=== PATIENT | female | born 1995 ===

== ENCOUNTER 2018-09-02 09:30 | Inpatient (IN) | payer OTHER ==
[2018-09-02] MEDS ORDERED: ELECTROLYTE-148 SOLN 500 ML IV SCH ×2 (10:30→11:30)
[2018-09-02 12:12] VITALS: BMI 28.3
[2018-09-02 12:51] LABS: BASO % 0.5 % (0-2.0); EOS % 0.2 % (0-4.5); HEMATOCRIT 35.9 % (32.4-45.2); HEMOGLOBIN 12.2 GM/dL (10.7-15.3); LYMPH % 23.7 % (8-40); MCH 27.1 pg (25.7-33.7); MCHC 34.1 g/dl (32.0-36.0); MEAN CELL VOLUME 79.5 fl (80-96); MEAN PLT VOLUME 8.9 fl (7.5-11.1); NEUT % 71.6 % (42.8-82.8); PLATELET COUNT 206 K/MM3 (134-434); RBC 4.51 M/mm3 (3.60-5.2); RDW 14.2 % (11.6-15.6); WHITE BLOOD COUNT 11.4 K/mm3 (4.0-10.0)
--- NOTE | 2018-09-02 12:56 | HP ---
Past Medical History - Primary Care Physician PCP:: Lee Austin - Admission Chief Complaint: pregnanacy 38 weeks, previous c/s , labor , request of repeat c /s History of Present Illness: 22 yo f with one previous c/s, c/o contraction since 5 am today, no rom , cx 1 cm, 70 vx -4 mi, fhr cat 1, regular contractions q 2min , requesting repeat c/s, risks discussed History Source: Patient Limitations to Obtaining History: No Limitations - Past Medical History ...: 2 ...Para: 1 ...Term: 1 ...: 0 ...Spon : 0 ...Induced : 0 ...Multiple Gestation: 0 ...LMP: 12/18/17 ... Weeks Gestation by Dates: 36.6 ...EDC by Dates: 09/24/18 ...EDC by Sono: 09/15/18 - Past Surgical History Past Surgical History: Yes: Hx Transabdominal Cerclage: No - Smoking History Smoking history: Never smoked Have you smoked in the past 12 months: No - Alcohol/Substance Use Hx Alcohol Use: No - Social History Usual Living Arrangement: Yes: With Spouse History of Recent Travel: No Home Medications - Allergies Allergies/Adverse Reactions: Allergies Allergy/AdvReac Type Severity Reaction Status Date / Time No Known Allergies Allergy Verified 09/02/18 10:02 - Home Medications Home Medications: Ambulatory Orders Pnv No.95/Ferrous Fum/Folic AC [ Formula] 1 each PO DAILY 09/02/18 Review of Systems - Review of Systems Constitutional: reports: No Symptoms Eyes: reports: No Symptoms HENT: reports: No Symptoms Neck: reports: No Symptoms Cardiovascular: reports: No Symptoms Respiratory: reports: No Symptoms Gastrointestinal: reports: No Symptoms Genitourinary: reports: No Symptoms Breasts: reports: No Symptoms Reported Musculoskeletal: reports: No Symptoms Neurological: reports: No Symptoms Endocrine: reports: No Symptoms Hematology/Lymphatic: reports: No Symptoms Psychiatric: reports: No Symptoms Physical Exam - Maternity Vital Signs: Vital Signs Temperature 98.6 F 09/02/18 12:00 Pulse Rate 74 09/02/18 12:00 Respiratory Rate 18 09/02/18 12:00 Blood Pressure 111/67 09/02/18 12:00 O2 Sat by Pulse Oximetry (%) Constitutional: Yes: Well Nourished, No Distress, Calm Eyes: Yes: WNL, Conjunctiva Clear, EOM Intact HENT: Yes: WNL, Atraumatic, Normocephalic Neck: Yes: WNL, Supple, Trachea Midline Cardiovascular: Yes: WNL, Regular Rate and Rhythm Breast(s): Yes: WNL - Abdominal Exam/OB Fundal Height: 38 Number of Fetuses: Single Presentation: Vertex Contractions: Yes Regularity: Regular Intensity: Mod/Strong Monitor Mode: External Heart Rate Location: [facility] Category: I Accelerations: Uniform Decelerations: None - Vaginal Exam/OB Vaginal Bleediing: No Speculum Exam: No Dilatation (cm): 1 cm Effacement (%): 70 Amniotic Membrane Status: Intact Presentation: Vertex/Position Station: -3 - Physical Exam Musculoskeletal: Yes: WNL Extremities: Yes: WNL Edema: Yes Edema: LLE: Trace, RLE: Trace Deep Tendon Reflex Grade: Normal +2 Psychiatric: Yes: WNL - Labs Lab Results: CBC, BMP 09/02/18 12:35 Hemorrhage Risk Assessment - Risk Factors Medium Risk Factors: Yes: Prior , uterine surgery,or multiple laparotomies Risk Score: 1 Risk Level: Medium Risk Problem List - Problems (1) with 38 completed weeks gestation Code(s): Z3A.38 - 38 WEEKS GESTATION OF (2) Previous section Code(s): Z98.891 - HISTORY OF UTERINE SCAR FROM PREVIOUS SURGERY (3) Labor established Code(s): WMS2388 - Assessment/Plan requesting repeat c/s, risks discussed , encourged
[2018-09-02] MEDS ORDERED: CITRIC ACID/SODIUM CITRATE 30 ML UNIT-DOSE CUP PO ONE (12:58)
[2018-09-02 13:03] LABS: INR 0.83 (0.83-1.09); PROTHROMBIN TIME (PATIENT) 9.8 SEC (9.7-13.0)
[2018-09-02 13:05] LABS: ACTIVATED PTT 26.2 SECONDS (25.2-36.5)
[2018-09-02 13:19] LABS: ANION GAP 8 MMOL/L (8-16); BLOOD UREA NITROGEN 10 mg/dL (7-18); CALCIUM 7.7 mg/dL (8.5-10.1); CHLORIDE 110 mmol/L (98-107); CO2 22 mmol/L (21-32); CREATININE 0.4 mg/dL (0.55-1.3); GLUCOSE,RANDOM 100 mg/dL (74-106); SODIUM 140 mmol/L (136-145)
[2018-09-02] MEDS ORDERED: METOCLOPRAMIDE HCL INJECTION 10 MG/2 ML VIAL ONE (13:55)
[2018-09-02] MEDS ORDERED: METOCLOPRAMIDE HCL INJECTION 10 MG/2 ML VIAL IVPUSH ONE (13:57)
[2018-09-02] MEDS ORDERED: morphine SULFATE/Preservative Free 0.5 MG/ML (1cc Syringe) ONE (14:29)
[2018-09-02] MEDS ORDERED: BENZOCAINE 20% 57 GM BOTTLE TP PRN (14:40)
[2018-09-02] MEDS ORDERED: oxyCODONE HCL 5 MG TABLET PO PRN (14:40)
[2018-09-02] MEDS ORDERED: WITCH HAZEL 50% (TUCKS) 40 PAD/JAR PAD TP PRN (14:40)
[2018-09-02] MEDS ORDERED: METHYLERGONOVINE MALEATE 0.2 MG/1 ML AMP IM PRN (14:40)
[2018-09-02] MEDS ORDERED: BENZOCAINE 28 GM HEMORRHOIDAL OINTMENT PR PRN (14:40)
[2018-09-02] MEDS ORDERED: diphenhydrAMINE HCL 25 MG CAPSULE (FP) PO PRN (14:40)
[2018-09-02] MEDS ORDERED: OXYTOCIN 20 UNITS in 0.9% NS 20 UNIT/1,000 ML INFUS.BAG IV SCH (14:45)
[2018-09-02] MEDS ORDERED: ceFAZolin SODIUM 1 GM VIAL ONE (14:46)
[2018-09-02] MEDS ORDERED: OXYTOCIN 10 UNITS/ML VIAL ONE (14:52)
[2018-09-02 15:38] LABS: ARTERIAL BLD GAS O2 SATURATION 21.2 % (90-98.9); ARTERIAL BLOOD GAS BASE EXCESS 0.2 meq/l (-2-2); ARTERIAL BLOOD GAS PCO2 58.2 mmHg (35-45); ARTERIAL BLOOD GAS PO2 16.1 mmHg (80-100); ARTERIAL BLOOD GAS pH 7.3 (7.35-7.45)
[2018-09-02 15:40] LABS: VENOUS PC02 47.5 mmHg (38-52); VENOUS PH 7.36 (7.32-7.42); VENOUS PO2 26.3 mmHg (28-48)
[2018-09-02] MEDS ORDERED: ONDANSETRON 4 MG/2 ML VIAL IVPUSH PRN (16:02)
[2018-09-02] MEDS: IBUPROFEN 800 MG/8 ML IJ IVPB PRN ×2 (16:36→22:33)
[2018-09-02] MEDS ORDERED: IBUPROFEN 800 MG/8 ML IJ IVPB ONE (16:37)
[2018-09-02] MEDS ORDERED: OXYTOCIN 20 UNITS in 0.9% NS 20 UNIT/1,000 ML INFUS.BAG IV ONE (16:38)
--- NOTE | 2018-09-02 17:43 | OP ---
DATE OF OPERATION: 09/02/2018 PREOPERATIVE DIAGNOSIS: at 38 weeks, previous section in labor, requests a repeat section. POSTOPERATIVE DIAGNOSIS: at 38 weeks, previous section in labor, requests a repeat section. PROCEDURE: Repeat low segment transverse section. SURGEON: Lee Austin MD DRIVERS LICENSE EXAMINER: ANESTHESIA: Spinal. ANESTHESIOLOGIST: Dr. Anderson . ESTIMATED BLOOD LOSS: 500 mL. FINDINGS: Live baby, Apgars 9 and 9. OPERATION: The patient was taken to the operating room. Under adequate spinal anesthesia abdomen and perineum were prepped and draped, Pfannenstiel abdominal skin incision was made over previous incision. Abdominal wall was cut layer by layer until peritoneum was exposed and incised. Upon entering the abdominal cavity, there were bladder adhesions to the lower uterine segment. There were multiple omental adhesions to the peritoneum and periuterine segment. These adhesions were lysed with Metzenbaum scissors and hemostasis was established. Then bladder was pushed down. A low transverse uterine incision was made. Incision extended laterally with bandage scissors. Amniotic sac was entered, meconium amniotic fluid. Head delivered. Nasopharynx was suctioned. A live baby was delivered without any difficulty. Placenta was delivered manually. Uterine cavity was cleaned of all remaining tissue. Uterine incision was closed in 2 layers, 1st layer with 0-Biosyn continuous suture, the 2nd layer with 0-Biosyn imbricating the 1st layer. There was a slight amount of oozing from the left uterine angle which was sutured with interrupted suture of 0-Biosyn and hemostasis was established. Pelvic cavity was then irrigated; no active bleeding was seen. All the lap pad, sponge and instrument counts were correct. The peritoneum was closed with 0-Biosyn continuous suture. Muscles were brought together with interrupted suture of 0-Biosyn. Fascia was closed with 0-Biosyn continuous suture, subcutaneous fat with interrupted suture of 0-Biosyn and the skin was closed with wendy. The patient tolerated the procedure well, left the OR in good condition. Gopi [id number]
[2018-09-02] MEDS ORDERED: CEFAZOLIN 1 GM in DEXTROSE 5%-WATER - 50 ML IVPB SCH (18:00)
[2018-09-02] MEDS ORDERED: CEFAZOLIN 1 GM/D5W 1 GM/50 ML BAG IVPB SCH (18:00)
[2018-09-02] MEDS: CEFAZOLIN 1 GM/D5W 1 GM/50 ML BAG IVPB SCH (18:08)
[2018-09-03] MEDS: DEXTROSE 5%-LACTATED RINGERS 1,000 ML IV SCH ×2 (01:34→01:35)
[2018-09-03] MEDS: CEFAZOLIN 1 GM/D5W 1 GM/50 ML BAG IVPB SCH (01:34)
[2018-09-03 07:32] LABS: BASO % 0.2 % (0-2.0); EOS % 0.5 % (0-4.5); HEMATOCRIT 33.3 % (32.4-45.2); HEMOGLOBIN 10.8 GM/dL (10.7-15.3); LYMPH % 21.8 % (8-40); MCHC 32.4 g/dl (32.0-36.0); MEAN CELL VOLUME 80.2 fl (80-96); MEAN PLT VOLUME 8.8 fl (7.5-11.1); MONO % 4.6 % (3.8-10.2); NEUT % 72.9 % (42.8-82.8); PLATELET COUNT 161 K/MM3 (134-434); RBC 4.15 M/mm3 (3.60-5.2); RDW 14.5 % (11.6-15.6); WHITE BLOOD COUNT 10.6 K/mm3 (4.0-10.0)
--- NOTE | 2018-09-03 08:07 | PN ---
Progress Note (short form) - Note Progress Note: pod 1 , s/p repeat c/s doing well, no c/o CBC, BMP 09/03/18 06:15 09/02/18 11:48 Last Vital Signs Temp Pulse Resp BP Pulse Ox 98.7 F 76 18 110/67 100 09/03/18 06:00 09/03/18 06:00 09/03/18 06:00 09/03/18 06:00 09/02/18 17:15 abdomen soft, no distension, no cva uterus firm incision dry, clean lochia mild no calf tenderness impression pod 1 afebrile , VS stable plan ambulate, advance diet pain management Problem List - Problems (1) with 38 completed weeks gestation Code(s): Z3A.38 - 38 WEEKS GESTATION OF (2) Previous section Code(s): Z98.891 - HISTORY OF UTERINE SCAR FROM PREVIOUS SURGERY (3) Labor established Code(s): [id number] -
--- NOTE | 2018-09-03 08:12 | PN ---
Progress Note (short form) - Note Progress Note: Anesthesia PO#1 S/P under spinal A and Duramorph VSS,no N/V,no pain,legs are strong. No complications to anesthesia seen. Virgen Painter MD.
[2018-09-03] MEDS: IBUPROFEN 600 MG TABLET (FP) PO PRN ×2 (10:05→17:19)
[2018-09-03] MEDS: SIMETHICONE 80 MG TAB.CHEW (FP) PO PRN ×2 (10:05→17:20)
[2018-09-03] MEDS: oxyCODONE HCL 5 MG TABLET PO PRN ×2 (10:06→17:19)
[2018-09-03] MEDS: ENOXAPARIN NA (PORCINE) 40 MG/0.4 ML DISP.SYRIN SQ SCH (10:08)
[2018-09-03] MEDS ORDERED: FLU VACCINE QUAD 60 MCG/0.5 ML (MDV 18-19) IM ONE (14:00)
[2018-09-03] MEDS ORDERED: BISACODYL 10 MG SUPP.RECT RC PRN (14:40)
[2018-09-04] MEDS: SENNOSIDES/DOCUSATE COMBO (SENNA PLUS) TABLET (UD) PO PRN ×2 (00:31→21:32)
[2018-09-04] MEDS: SIMETHICONE 80 MG TAB.CHEW (FP) PO PRN ×2 (00:31→16:09)
[2018-09-04] MEDS: IBUPROFEN 600 MG TABLET (FP) PO PRN ×3 (00:32→16:09)
[2018-09-04] MEDS: oxyCODONE HCL 5 MG TABLET PO PRN ×3 (00:33→16:08)
--- NOTE | 2018-09-04 08:23 | PN ---
Post Progress Note Post Day: 2 Type of Delivery: Repeat C/S Vital Signs: Vital Signs Temperature 98.5 F 09/03/18 22:00 Pulse Rate 74 09/03/18 22:00 Respiratory Rate 20 09/03/18 22:00 Blood Pressure 115/70 09/03/18 22:00 O2 Sat by Pulse Oximetry (%) 100 09/02/18 17:15 Uterus: Yes: Fundus below umbilicus Incision: Yes: Dressing dry and intact Abdomen/GI: Yes: Abdomen soft Lochia: Yes: Rubra Lochia, amount: Small Extremities: Yes: Calves non-tender Perineum: Yes: Intact Activity: Ambulating (No issues overnight. Pain controlled with meds. Tolerating po.) - Labs Labs: CBC WBC 10.6 K/mm3 (4.0-10.0) H 09/03/18 06:15 RBC 4.15 M/mm3 (3.60-5.2) 09/03/18 06:15 Hgb 10.8 GM/dL (10.7-15.3) 09/03/18 06:15 Hct 33.3 % (32.4-45.2) 09/03/18 06:15 MCV 80.2 fl (80-96) 09/03/18 06:15 MCH 26.0 pg (25.7-33.7) 09/03/18 06:15 MCHC 32.4 g/dl (32.0-36.0) 09/03/18 06:15 RDW 14.5 % (11.6-15.6) 09/03/18 06:15 Plt Count 161 K/MM3 (134-434) D 09/03/18 06:15 MPV 8.8 fl (7.5-11.1) 09/03/18 06:15 Absolute Neuts (auto) 7.8 K/mm3 (1.5-8.0) 09/03/18 06:15 Neutrophils % 72.9 % (42.8-82.8) 09/03/18 06:15 Lymphocytes % 21.8 % (8-40) 09/03/18 06:15 Monocytes % 4.6 % (3.8-10.2) 09/03/18 06:15 Eosinophils % 0.5 % (0-4.5) D 09/03/18 06:15 Basophils % 0.2 % (0-2.0) 09/03/18 06:15 Nucleated RBC % 0 % (0-0) 09/03/18 06:15 Assessment/Plan 22yo s/p RLTCS, POD#2 Routine PP care Labs reviewed OOB, ambulate Anticipate d/c to home by POD#4 Dahiana Kirk MD
[2018-09-04] MEDS: ENOXAPARIN NA (PORCINE) 40 MG/0.4 ML DISP.SYRIN SQ SCH (10:01)
[2018-09-05] MEDS: SIMETHICONE 80 MG TAB.CHEW (FP) PO PRN ×2 (03:17→09:12)
[2018-09-05] MEDS: IBUPROFEN 600 MG TABLET (FP) PO PRN ×2 (03:17→09:10)
[2018-09-05] MEDS: ACETAMINOPHEN 325 MG TABLET (FP) PO PRN ×2 (03:17→09:11)
[2018-09-05 06:01] LABS: BASO % 0.1 % (0-2.0); EOS % 0.8 % (0-4.5); HEMATOCRIT 31.5 % (32.4-45.2); HEMOGLOBIN 10.2 GM/dL (10.7-15.3); LYMPH % 25.5 % (8-40); MCH 25.9 pg (25.7-33.7); MCHC 32.3 g/dl (32.0-36.0); MEAN CELL VOLUME 80.2 fl (80-96); MEAN PLT VOLUME 7.7 fl (7.5-11.1); MONO % 4.9 % (3.8-10.2); NEUT % 68.7 % (42.8-82.8); PLATELET COUNT 184 K/MM3 (134-434); RBC 3.93 M/mm3 (3.60-5.2); RDW 14.6 % (11.6-15.6); WHITE BLOOD COUNT 8.8 K/mm3 (4.0-10.0)
[2018-09-05 08:26] VITALS: BP 114/72; PULSE 84; TEMP 99.1
[2018-09-05] MEDS: ENOXAPARIN NA (PORCINE) 40 MG/0.4 ML DISP.SYRIN SQ SCH (09:10)
--- NOTE | 2018-09-05 09:53 | DS ---
Physical Exam-POLICY SERVICES REPRESENTATIVE Vital Signs: Vital Signs Temperature 99.1 F 09/05/18 08:23 Pulse Rate 84 09/05/18 08:23 Respiratory Rate 20 09/05/18 08:23 Blood Pressure 114/72 09/05/18 08:23 O2 Sat by Pulse Oximetry (%) 100 09/02/18 17:15 Constitutional: Yes: Well Nourished, No Distress, Calm Eyes: Yes: WNL, Conjunctiva Clear, EOM Intact HENT: Yes: WNL, Atraumatic, Normocephalic Neck: Yes: WNL, Supple, Trachea Midline Cardiovascular: Yes: WNL, Regular Rate and Rhythm Respiratory: Yes: WNL, Regular, CTA Bilaterally Gastrointestinal: Yes: WNL ...Rectal Exam: Yes: WNL Renal/: Yes: WNL ....Post : Yes: Uterus firm, Uterus non-tender, Slight lochia rubra Breast(s): Yes: WNL Musculoskeletal: Yes: WNL Extremities: Yes: WNL Edema: No Integumentary: Yes: WNL Wound/Incision: Yes: Clean/Dry, Well Approximated, Thomas Intact Neurological: Yes: WNL, Alert, Oriented ...Motor Strength: WNL Psychiatric: Yes: WNL, Alert, Oriented Labs: CBC, BMP 09/05/18 05:55 09/02/18 11:48 Delivery - Delivery Section: Repeat (no complication) Type of Anesthesia: Spinal Episiotomy/Laceration: None EBL (cc): 500 Delivery, Single - Stages of Labor Date 1st Stage Initiatied: 09/02/18 Time 1st Stage Initiated: 05:00 Date of Delivery: 09/02/18 Time of Delivery: 14:54 Time Placenta Delivered: 14:55 Placenta: Yes: Expressed - Condition of Infant Police Inspector/Metrology Engineer Present: Yes Name: Henna Martinez Gender: Female Weight: 6 lb 4 oz Position: Right, OT Total Hours ROM (Hrs/Mins): 2mins - 1 Minute Total Score: 9 5 Minutes Total Score: 9 - Feeding Plan Initial Plan: Elected not to breastfeed exclusively throughout hospitalization Discharge Summary Reason For Visit: Current Active Problems Labor established (Acute) with 38 completed weeks gestation (Acute) Previous section (Acute) Procedures: Principal: repeat LST c/s Hospital Course: no complication - Instructions Diet, Activity, Other Instructions: Regular Diet return to clinic in 1 week for wendy removal and 6 weeks for check. call [facility] for appointment. [phone] Referrals: Dahiana Kirk MD [Staff Physician] - Disposition: HOME - Home Medications Comprehensive Discharge Medication List: Ambulatory Orders Pnv No.95/Ferrous Fum/Folic AC [ Formula] 1 each PO DAILY 09/02/18 Ibuprofen 600 mg PO Q6H PRN #30 tablet 09/04/18 Oxycodone HCl/Acetaminophen [Percocet 5-325 mg Tablet -] 1 - 2 tab PO Q6H PRN # 10 tab MDD 4 09/04/18
--- NOTE | 2018-09-05 14:17 | PATH ---
Surgical Pathology Report Patient Name: ALICIA CASTILLO Med. Rec. #: [id number] /Age/Gender: 1995 (Age: 22) / F Account: [id number] Location: [facility] OBS/BIOMETRICS HEAD Taken: 09/02/2018 Received: 09/03/2018 Reported: 09/05/2018 Physicians: Lee Austin M.D. Specimen(s) Received PLACENTA Clinical History , 38.1 weeks in labor Final Diagnosis PLACENTA, SECTION: 404 G THIRD TRIMESTER PLACENTA WITH TRIVASCULAR UMBILICAL CORD, FOCAL INTRAPARENCHYMAL INFARCT (<10% OF PLACENTAL SURFACE), AND UNREMARKABLE PLACENTAL MEMBRANES. Electronically Signed Lynn Awad M.D. Gross Description The specimen is received fresh labeled placenta and is a 404 gram, 14.0 x 13.0 x 3.8 cm. placenta with attached membranes and umbilical cord. The attached membranes are shepard, translucent with focal opacities and insert marginally. The umbilical cord measures 10 cm. in length and averages 0.9 cm. in diameter. The cord inserts eccentrically, 3 cm. to the nearest margin. No true knots or strictures are identified. Cut surface of the umbilical cord reveals 3 vessels. The surface is malik blue with moderate fibrin deposition and appropriate caliber vessels. The maternal surface is red-brown and intact. Sectioning reveals a 1.0 cm in greatest dimension shepard intraparenchymal lesion. The remaining placental parenchyma is red-brown and spongy. T[place] Wheel Filler sections are submitted in 4 cassettes as follows: 1-membrane roll and umbilical cord; 2-lesion; 3-4-full thickness sections of placenta. 09/03/2018 [facility]09/03/2018
== END 2018-09-05 11:00 | disposition home or self-care (01) | DRG 540 ==
LOC: JDEL 09:30 → JLDR 11:45 → J3W 17:30
PROVIDERS: ADMIT Obstetrics & Gynecology; ATTEND Obstetrics & Gynecology
PROC: 10D00Z1 Extraction of Products of Conception, Low, Open Approach (ICD-10-PCS; principal; 2018-09-02)
DX: O34.211 Maternal care for low transverse scar from previous cesarean delivery (principal); Z3A.38 38 weeks gestation of pregnancy; Z37.0 Single live birth
CPT/HCPCS: 36415; 36600; 59025; 80048; 82803; 85025; 85610; 85730; 86593; 86850; 86900; 86901; 88307-TC; 90686; G0008